=== PATIENT | male | born 1960 | race Two or more races ===

== ENCOUNTER 2019-11-18 10:19 | Inpatient (IN) | payer OTHER ==
[~2019-11-18] VITALS: Ht 185.4 cm; Wt 75.3 kg
[2019-11-18 11:40] LABS: HEMOGLOBIN. 14.2 g/dL (14.0-18.0); MEAN CORPUSCULAR VOLUME 98.8 fL (80.0-94.0); PLATELET 225 x1000/uL (130-400); RED BLOOD CELL COUNT 4.05 mill/uL (4.7-6.1); RED CELL DISTRIBUTION WIDTH 12.7 % (11.6-14.6)
[2019-11-18] MEDS ORDERED: LEVOFLOXACIN 500MG PREMIX 100 ML IV ONE (11:45)
[2019-11-18 11:47] LABS: CHLORIDE 91 mEq/L (98-107)
[2019-11-18 12:33] LABS: PLATELET ESTIMATE NORMAL
[2019-11-18] MEDS ORDERED: CLONIDINE 0.1MG TABLET PO PRN (13:45)
[2019-11-18] MEDS ORDERED: IPRATROPIUM/ALBUTEROL 0.5-3(2.5)MG/3ML NEB HHN PRN (13:45)
[2019-11-18] MEDS ORDERED: ONDANSETRON HCL 4MG/2ML INJ IV PRN (13:45)
[2019-11-18] MEDS ORDERED: SODIUM CHLORIDE 0.9% 1,000 ML IV ONE (14:00)
[2019-11-18] MEDS: ACETAMINOPHEN 325MG TABLET PO PRN (16:23)
[2019-11-18 16:46] LABS: PHOSPHORUS 3.2 mg/dL (2.5-4.9)
[2019-11-18 17:01] LABS: FOLIC ACID (FOLATE) SERUM 13.2 ng/mL (>5.38)
[2019-11-18] MEDS ORDERED: AZITHROMYCIN 500 MG in DEXT 5% WATER 250 ML IV SCH (18:03)
[2019-11-18] MEDS ORDERED: ENOXAPARIN 40MG/0.4ML SYR SUBCUT SCH (20:19)
[2019-11-19 05:17] LABS: BASOPHILS % 0.3 % (0.0-2.0); HEMATOCRIT. 37.5 % (42.0-52.0); HEMOGLOBIN. 13.3 g/dL (14.0-18.0); MEAN CORPUSCULAR HEMOGLOBIN 34.9 pg (28.0-32.0); MEAN CORPUSCULAR VOLUME 98.4 fL (80.0-94.0); MEAN PLATELET VOLUME 8.1 fl (7.4-10.4); MONOCYTES % 8.6 % (2.0-8.0); NEUTROPHILS % 80.1 % (40.0-76.0); PLATELET 199 x1000/uL (130-400); RED BLOOD CELL COUNT 3.81 mill/uL (4.7-6.1); RED CELL DISTRIBUTION WIDTH 12.8 % (11.6-14.6)
[2019-11-19 05:20] LABS: CHLORIDE 96 mEq/L (98-107)
[2019-11-19 05:27] LABS: LDL CHOLESTEROL 40 mg/dL (5-100)
[2019-11-19 05:28] LABS: HDL CHOLESTEROL 93 mg/dL (40-59)
[2019-11-19 08:45] VITALS: BP 131/79
[2019-11-19] MEDS ORDERED: MAGNESIUM 2 G PREMIX 50 ML IV SCH (11:00)
[2019-11-19 12:00] VITALS: BP 130/88
[2019-11-19] MEDS ORDERED: POTASSIUM CHLORIDE INJ 40 MEQ in DEXT 5% WATER 250 ML IV SCH (12:00)
[2019-11-19 16:00] VITALS: BP 119/71
[2019-11-19] MEDS ORDERED: AZITHROMYCIN 500 MG in DEXT 5% WATER 250 ML IV SCH (18:00)
[2019-11-19 20:00] VITALS: BP 134/74
[2019-11-19] MEDS: ENOXAPARIN 40MG/0.4ML SYR SUBCUT SCH (21:26)
[2019-11-19] MEDS ORDERED: ENOXAPARIN 40MG/0.4ML SYR SUBCUT ONE (21:27)
[2019-11-20] VITALS: BP 127/77
[2019-11-20] MEDS ORDERED: ACETAMINOPHEN 325MG TABLET ONE ×4 (00:47→21:04)
[2019-11-20] MEDS: ACETAMINOPHEN 325MG TABLET PO PRN ×4 (00:49→22:09)
[2019-11-20 04:00] VITALS: BP 128/70
[2019-11-20 07:24] LABS: BASOPHILS % 0.3 % (0.0-2.0); HEMATOCRIT. 38.5 % (42.0-52.0); HEMOGLOBIN. 13.6 g/dL (14.0-18.0); LYMPHOCYTES % 11.6 % (20.0-50.0); MEAN CORPUSCULAR HEMOGLOBIN 34.7 pg (28.0-32.0); MEAN CORPUSCULAR VOLUME 98.3 fL (80.0-94.0); MEAN PLATELET VOLUME 8.3 fl (7.4-10.4); MONOCYTES % 8.7 % (2.0-8.0); NEUTROPHILS % 79.4 % (40.0-76.0); PLATELET 200 x1000/uL (130-400); RED BLOOD CELL COUNT 3.91 mill/uL (4.7-6.1); RED CELL DISTRIBUTION WIDTH 12.4 % (11.6-14.6)
[2019-11-20 08:00] VITALS: BP 120/75
[2019-11-20 08:22] LABS: CHLORIDE 95 mEq/L (98-107)
[2019-11-20 12:00] VITALS: BP 106/81
[2019-11-20 16:00] VITALS: BP 117/72
[2019-11-20 20:00] VITALS: BP 117/78
[2019-11-20] MEDS ORDERED: AZITHROMYCIN 500MG in DEXTROSE 5% WATER 250ML IV SCH (20:00)
[2019-11-20] MEDS: ENOXAPARIN 40MG/0.4ML SYR SUBCUT SCH (20:58)
[2019-11-20] MEDS ORDERED: GUAIFENESIN 600MG ER TABLET PO ONE (20:59)
[2019-11-20] MEDS ORDERED: ENOXAPARIN 40MG/0.4ML SYR SUBCUT ONE (20:59)
[2019-11-21] VITALS: BP 110/65
[2019-11-21 04:00] VITALS: BP 142/83
[2019-11-21 08:00] VITALS: BP 130/92
[2019-11-21 12:00] VITALS: BP 131/81
[2019-11-21 16:00] VITALS: BP 119/80
[2019-11-21 16:30] VITALS: BP 119/80
== END 2019-11-21 20:00 | disposition home or self-care (01) | DRG 865 ==
LOC: ER 10:19 → EDBD 10:19 → 7EST 13:14 → EDBEDREQ 14:38 → ENRESERV 11-19 08:02 → 7EST 11-19 12:29
PROVIDERS: ADMIT Internal Medicine; ATTEND Internal Medicine
DX: B34.9 Viral infection, unspecified (principal); J18.9 Pneumonia, unspecified organism; J96.01 Acute respiratory failure with hypoxia; E87.1 Hypo-osmolality and hyponatremia; J40 Bronchitis, not specified as acute or chronic; R55 Syncope and collapse; D72.810 Lymphocytopenia; R74.0 Nonspecific elevation of levels of transaminase and lactic acid dehydrogenase [LDH]; R50.9 Fever, unspecified; D72.825 Bandemia
CPT/HCPCS: 36415; 71045; 80048; 80053; 80061; 82607; 82746; 83605; 83735; 83880; 84100; 84145; 84443; 84484; 85025; 87420; 87635; 87804; 93005; J0456; J1650; J1956; J3475; J3480; J7060; U0002